=== PATIENT | male | born 1980 | race Caucasian/White ===

== ENCOUNTER → 2021-10-31 02:22 | Outpatient (CLI) | payer OTHER, SELFPAY ==
[2021-10-31 20:26] LABS: SARS-CoV-2 RNA PCR Negative
== END ==
PROVIDERS: PCP Family Medicine Adolescent Medicine; Visit Provider Family Medicine Adolescent Medicine
DX: R05.9 Cough, unspecified (principal); J02.9 Acute pharyngitis, unspecified; R50.9 Fever, unspecified; Z20.822 Contact with and (suspected) exposure to COVID-19
CPT/HCPCS: C9803; U0003; U0005

== ENCOUNTER 2023-08-09 11:05 | Observation (INO) | payer BC, SELFPAY ==
[2023-08-09] VITALS (13 sets, daily range): BP systolic 153–186; BP diastolic 88–103; PULSE 102–120; RESP 18–40; TEMP 36.9–37.3; O2SAT 93–98; BMI 34.7
--- NOTE | ~2023-08-09 | CT_ITS ---
EXAMINATION: CT brain wo con DATE: 08/09/2023 13:27 INDICATION: Seizure. Fall. Neck pain. TECHNIQUE: Computed tomography (CT) of the head was performed without intravenous contrast. The mA wa s adjusted according to patient size. Iterative reconstruction technique was employed. Exam dose: 60 5.33 mGy-cm total exam DLP. COMPARISON: 04/19/2019 CT brain. FINDINGS: Chronic right frontal, right temporal and left cerebellar encephalomalacia, stable since 04/19/2019. Chronic high right posterior parietal soft tissue thickening, present on 04/19/2019. No intracranial mass lesion or hemorrhage, midline shift or mass effect or subdural or epidural hemat waldemar is detected. No skull fracture or bone destruction. IMPRESSION: No acute finding or significant change since 04/19/2019 Reviewed, dictated and finalized at [facility]. Reviewed, dictated and finalized at [facility].
--- NOTE | ~2023-08-09 | XR_ITS ---
XR chest 1V portable DATE: 08/09/2023 13:12 INDICATION: Leukocytosis TECHNIQUE: Portable supine AP views on 08/09/2023 at 1301 at 1302 hours COMPARISON: 01/23/2009 portable AP chest FINDINGS: Mild discoid atelectasis or scarring at the right lung base. No pulmonary infiltrate or con solidation, pleural effusion or pulmonary vascular congestion or pneumothorax is noted otherwise. Car diac and mediastinal sweats appear unremarkable for AP projection. Included skeletal structures are unremarkable. IMPRESSION: Mild discoid scarring or atelectasis at the right lung base Reviewed, dictated and finalized at [facility].
--- NOTE | ~2023-08-09 | XR_ITS ---
XR shoulder LT min 2V DATE: 08/09/2023 13:12 INDICATION: Fall. Left shoulder injury, pain TECHNIQUE: 4 views of left shoulder COMPARISON: 02/27/2019 left shoulder FINDINGS: No fracture, dislocation, periosteal reaction or bone destruction or abnormal soft tissue c alcification. IMPRESSION: Negative Reviewed, dictated and finalized at [facility]. IMPRESSION: Negative
--- NOTE | ~2023-08-09 | CT_ITS ---
EXAMINATION: CT cervical spine wo con DATE: 08/09/2023 13:27 INDICATION: Seizure. Fall. Neck pain. TECHNIQUE: Computed tomography (CT) of the cervical spine was performed without intravenous contrast. Automated exposure control and iterative reconstruction technique were employed. Exam dose: 512.67 mGy-cm total exam DLP. COMPARISON: None FINDINGS: There is straightening of the cervical spine which may be due to muscle spasm or positionin g. There is failure segmentation of C2 and C3, congenital. There is prominent anterior spurring at C3-C6 C7. There is mild amount loss of interspace height at C 6-7. The remaining cervical spaces are well preserved. No fracture or dislocation or locked facet is detected.. 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 Reviewed, dictated and finalized at location [facility].
--- NOTE | 2023-08-09 11:12 | ECG_ITS ---
Measurements Intervals [place] Rate: 113 P: 135 SD: 145 QRS: 116 QRSD: 102 T: 155 QT: 308 QTc: 424 Interpretive Statements SINUS TACHYCARDIA LIMB LEAD REVERSAL LEFT ATRIAL ENLARGEMENT DELAYED PRECORDIAL R/S TRANSITION BORDERLINE ST-T WAVE ABNORMALITY- INFERIOR LEADS BASELINE ARTIFACT- I, III, AVL, V6 ABNORMAL ECG NO PREVIOUS ECG AVAILABLE FOR COMPARISON Electronically Signed On 08-09-2023 16:55:49 CDT by Marlo Robert D.O.
[2023-08-09 11:22] LABS: Basophils Absolute Auto 0.1 K/mm3 (0.0-0.1); Basophils Percent Auto 0.4 % (0.2-1.2); Hematocrit 46.6 % (42.0-52.0); Hemoglobin 16.5 g/dL (14.0-18.0); Immature Granulocyte Absolute 0.16 K/mm3 (0.00-0.031); Immature Granulocyte Percent A 0.7 % (0-0.5); Lymphocytes Absolute Auto 2.07 K/mm3 (0.9-3.2); Lymphocytes Percent Auto 9.2 % (18.3-44.2); Mean Corpuscular HGB Conc 35.4 g/dl (32-36); Mean Corpuscular Hemoglobin 30.3 pg (26-34); Mean Corpuscular Volume 85.5 fl (80-100); Mean Platelet Volume 11.3 fl (7.4-10.4); Monocytes Absolute Auto 0.9 K/mm3 (0.1-0.6); Monocytes Percent Auto 4.2 % (2.6-8.5); Neutrophils Absolute Auto 19.3 K/mm3 (1.3-6.7); Neutrophils Percent Auto 85.5 % (45.5-73.1); Platelet Count Result 215 k/mm3 (150-375); Red Blood Count 5.45 M/mm3 (4.6-6.20); Red Cell Distribution Width 12.1 % (11.5-14.5); White Blood Count 22.6 K/mm3 (4.5-10.0)
[2023-08-09 11:51] LABS: Alanine Aminotransferase 93 U/L (6-50); Albumin Level 4.5 g/dL (3.5-5.1); Alkaline Phosphatase 104 U/L (38-126); Anion Gap 7 mmol/L (8-16); Aspartate Amino Transferase 59 U/L (17-59); Bilirubin,Total 0.6 mg/dL (0.2-1.3); Blood Urea Nitrogen 11 mg/dL (9-20); Calcium 8.9 mg/dL (8.4-10.2); Carbon Dioxide 27 mmol/L (22-30); Chloride 102 mmol/L (98-107); Estimated CRCL calculation 126 ml/min; Estimated Glomerular Filt Rate > 60; Glucose 167 mg/dL (65-110); Potassium 4.4 mmol/L (3.4-5.0); Sodium 136 mmol/L (137-145)
--- NOTE | 2023-08-09 12:48 | ED.SEIZURE ---
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 Patient was at work when he was witnessed to fall backwards and having generalized seizure-like activity. Patient's mom is at bedside and helps with the history. States that he has somewhat frequent seizures related to his TBI 20+ years ago. He is on lacosamide, lamotrigine, clonazepam, phenobarbital which he is compliant with. Currently, he complains of left shoulder pain. He did bite his tongue. No bladder or bowel incontinence. He denies headache, neck or back pain. No chest pain, shortness of breath, abdominal pain. No nausea or vomiting. Related Data Home Medications Medication Instructions Recorded Confirmed ascorbate calcium (vitamin C) 500 1,000 mg PO DAILY 08/09/23 08/09/23 mg tablet calcium carb-vitamin D3 ER 600 mg 2 tablet PO DAILY 08/09/23 08/09/23 (1,500 mg)-500 unit tablet,ER 24 hr clobazam 10 mg tablet 10 - 20 mg PO BID 08/09/23 08/09/23 clonazepam 0.5 mg tablet 0.5 mg PO BID PRN Seizures 08/09/23 08/09/23 lacosamide 100 mg tablet 200 - 300 mg PO BID 08/09/23 08/09/23 lamotrigine 200 mg tablet 300 - 400 mg PO BID 08/09/23 08/09/23 multivitamin with minerals-folic 1 tablet PO DAILY 08/09/23 08/09/23 acid 0.4 mg tablet phenobarbital 97.2 mg tablet 97.2 mg PO HS 08/09/23 08/09/23 Allergies Allergy/AdvReac Type Severity Reaction Status Date / Time PHENYTOIN SODIUM Allergy Intermediate SEVERELY Uncoded 08/09/23 11:12 LETHARGIC PHENYTOIN SODIUM EXTENDED Allergy Unknown SEVERE Uncoded 08/09/23 11:12 LETHARGY Review of Systems Review of Systems: All systems reviewed & are unremarkable except as noted in HPI and below PMFSH Past Medical History Medical History Deafness in right ear Seizure disorder Traumatic brain injury (05/2001) Family History Family History Other Family history non-contributory Social History Social History Social History: Surrogate medical decision maker: Ravi(mother) or Tyler (brother) Sadie. Code status: Full code. Smoking status: Never smoker Second hand tobacco smoke exposure: No Alcohol intake: never Substance use: never Substance use type: does not use Additional living arrangements comments: Lives with mother in [place]. 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 EYES: PERRLA and EOMI. ENT: + Several abrasions/ecchymoses to lateral tongue NECK: Supple. C-collar in place, no midline tenderness CHEST: Clear to auscultation. No respiratory distress. HEART: Regular rate and rhythm ABDOMEN: Soft, nontender, nondistended EXTREMITIES: Normal range of motion. + Left shoulder with diffuse tenderness, no deformities SKIN: Warm, dry, no rash. NEURO: No focal deficits. Alert and oriented x3. PSYCH: Normal mood and affect. Course Vital Signs Vital signs: Vital Signs Temperature 99.1 F 08/09/23 11:00 Pulse Rate 116 H 08/09/23 11:00 Respiratory Rate 24 H 08/09/23 11:00 Blood Pressure 160/88 H 08/09/23 11:00 Pulse Oximetry 96 08/09/23 11:00 Temperature 98.3 F 08/10/23 14:00 Pulse Rate 105 H 08/10/23 14:00 Respiratory Rate 20 08/10/23 14:00 Blood Pressure 167/88 H 08/10/23 14:00 Pulse Oximetry 97 08/10/23 14:00 Oxygen Delivery Nasal Cannula 08/09/23 14:39 Oxygen Flow Rate 2 08/09/23 14:39 MDM - Seizure MDM Narrative Medical decision making narrative: Patient is a 43-year-old male presenting
[2023-08-09] MEDS: SODIUM CHLORIDE 0.9% IV 1,000 ML 999 ML IV CONT ×2 (12:55→15:39)
--- NOTE | 2023-08-09 13:12 | PC.NURSE ---
Pt to CT scan via stretcher at this time.
[2023-08-09 13:44] LABS: Appearance Urine Clear (Clear); Bacteria Urine None Seen /hpf; Bilirubin Urine Negative (Negative); Blood Urine Negative (Negative); Color Urine Yellow (Yellow); Glucose Urine UA Negative (Negative); Ketones Urine Negative (Negative); Leukocyte Esterase Ur Negative LEU/UL (Negative); Nitrate Urine Negative (Negative); Non Pathogenic Casts 0-2; Protein Urine 1+ mg/dL (Negative); RBC Urine 0-2 /hpf (0-2); Specific Grav Ur 1.015 (1.001-1.035); Squamous Epithelial Cell Urine None seen /hpf (Few); Urobilinogen Urine 0.2 mg/dL (<2.0); WBC Urine 0-5 /hpf
[2023-08-09 13:52] LABS: Add Urine Microscopic? YES
[2023-08-09] MEDS: LORazepam INJ (*CRX) 2 MG/ML VIAL IV PUSH (14:41)
[2023-08-09] MEDS: levETIRAcetam IV 3,000 MG in DEXTROSE 5% 100 ML 460 MG IVPB (17:35)
--- NOTE | 2023-08-09 19:46 | ADMGEN ---
This patient, Tone Noel, was admitted to Medical Room 340-01. Patient/family oriented to hospital policies and general routines including ID bracelet, bed and alarms, visiting hours, pain management, procedures, bathroom and other care routines, personal items, smoking policy, room service/diet, and visiting hours. Information on how to activate the Rapid Response Team has been discussed. Patient/Family are encouraged to report perceived risks to care and to ask questions if they do not understand what they are told or what they should do.
--- NOTE | 2023-08-09 21:07 | PM.IMHP ---
H&P: HPI History of Present Illness Date/Time: 08/09/23 18:00 Chief Complaint: Seizure. Narrative: This is a 43-year-old male with history of traumatic brain injury and subsequent seizures presented to the emergency department via EMS from his place of employment for evaluation after seizure. He is postictal and is not able to provide much in the way of history at this time. As such majority the following is obtained via a review of his EMR as well as discussions with his mother. He is followed by Dr. Stephenson at [facility] and he is currently taking phenobarbital, lamotrigine, and lacosamide daily. Despite compliance with his medications, it is not unusual for him to have partial complex seizures every 7 to 10 days or so and at times he has grand mal seizures as well. Previously he was on phenytoin and levetiracetam but did not tolerate either of those due to lethargy and extreme rage respectively. In any event the patient seemed to be just fine this morning when he left for work. Approximately 30 minutes into his shift a co-worker found him flat on his back and ?twitching.? EMS was summoned and he was postictal on their arrival. CT of the head and neck as well as x-rays of the shoulder and chest were negative for acute findings. Labs were pretty unremarkable aside from a WBC count of 22.6 he gradually became more alert in the ED and just as he was going to be discharged she had a grand mal seizure requiring Ativan he is being admitted in this setting for close monitoring and neurology consultation. At the time my evaluation he is asleep but does arouse to voice. He has no current complaints and denies headache, neck pain, chest pain, shortness a breath, nausea, vomiting, focal weakness, paresthesias. Review of Systems Review of Systems: Twelve systems were reviewed and are negative except for as per HPI. [facility] Past Medical History Medical History (Updated 08/09/23 @ 21:15 by Nina Weaver PA-C) Deafness in right ear Seizure disorder Traumatic brain injury (05/2001) Family History Family History (Updated 08/09/23 @ 21:12 by Nina Weaver PA-C) Other Family history non-contributory Social History Social History (Updated 08/09/23 @ 21:13 by Nina Weaver PA-C) Social History: Surrogate medical decision maker: Ravi(mother) or Ed (brother) Sadie. Code status: Full code. Smoking status: Never smoker Second hand tobacco smoke exposure: No Alcohol intake: never Substance use: never Substance use type: does not use Additional living arrangements comments: Lives with mother in [place]. 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 Meds Home Medications and Allergies Home Medications Medication Instructions Recorded Confirmed Type ascorbate calcium (vitamin C) 500 1,000 mg PO DAILY 08/09/23 08/09/23 History mg tablet calcium carb-vitamin D3 ER 600 mg 2 tablet PO DAILY 08/09/23 08/09/23 History (1,500 mg)-500 unit tablet,ER 24 hr clobazam 10 mg tablet 10 - 20 mg PO BID 08/09/23 08/09/23 History clonazepam 0.5 mg tablet 0.5 mg PO BID PRN Seizures 08/09/23 08/09/23 History lacosamide 100 mg tablet 200 - 300 mg PO BID 08/09/23 08/09/23 History lamotrigine 200 mg tablet 300 - 400 mg PO BID 08/09/23 08/09/23 History multivitamin with minerals-folic 1 tablet PO DAILY 08/09/23 08/09/23 History acid 0.4 mg tablet phenobarbital 97.2 mg tablet 97.2 mg PO HS 08/09/23 08/09/23 History Allergies Allergy/AdvReac Type Severity Reaction Status Date / Time PHENYTOIN SODIUM Allergy Intermediate SEVERELY Uncoded 08/09/23 11:12 LETHARGIC PHENYTOIN SODIUM EXTENDED Allergy Unknown SEVERE Uncoded 08/09/23 11:12 LETHARGY Vital Signs Vital Signs - 24 hr 08/09/23 11:00 08/09/23 11:05 08/09/23 11:12 Temperature 99.1 F Pulse Rate 116 H 113 H Respiratory Rate 24 H Blood Pressure 160/88 H Pulse
[2023-08-09] MEDS: lamoTRIgine 100 MG TABLET 400 MG PO (22:27)
[2023-08-09] MEDS: ACETAMINOPHEN 325 MG TABLET 650 MG PO (22:28)
[2023-08-09] MEDS: PHENobarbital (*CRX) 100 MG TABLET PO (22:28)
[2023-08-09] MEDS: LACOSAMIDE (*CRX) 100 MG TABLET PO (22:28)
[2023-08-09] MEDS: LACOSAMIDE (*CRX) 200 MG TABLET PO (22:28)
[2023-08-09 23:37] LABS: Phenytoin Dilantin < 3 ug/mL (10-20)
[2023-08-10] VITALS: PULSE 103
[2023-08-10 04:00] VITALS: PULSE 93
[2023-08-10 04:05] VITALS: BP 176/89; PULSE 91; RESP 18; TEMP 36.6; O2SAT 99
[2023-08-10 06:06] LABS: Hematocrit 45.2 % (42.0-52.0); Hemoglobin 15.6 g/dL (14.0-18.0); Mean Corpuscular HGB Conc 34.5 g/dl (32-36); Mean Corpuscular Hemoglobin 29.9 pg (26-34); Mean Corpuscular Volume 86.8 fl (80-100); Mean Platelet Volume 11.3 fl (7.4-10.4); Platelet Count Result 196 k/mm3 (150-375); Red Blood Count 5.21 M/mm3 (4.6-6.20); Red Cell Distribution Width 12.1 % (11.5-14.5); White Blood Count 17.2 K/mm3 (4.5-10.0)
[2023-08-10 06:19] LABS: Anion Gap 9 mmol/L (8-16); Blood Urea Nitrogen 9 mg/dL (9-20); Calcium 8.6 mg/dL (8.4-10.2); Carbon Dioxide 25 mmol/L (22-30); Chloride 102 mmol/L (98-107); Estimated CRCL calculation 146 ml/min; Estimated Glomerular Filt Rate > 60; Glucose 135 mg/dL (65-110); Magnesium 2.2 mg/dL (1.6-2.3); Potassium 3.5 mmol/L (3.4-5.0); Sodium 136 mmol/L (137-145)
[2023-08-10 08:00] VITALS: PULSE 85
[2023-08-10] MEDS: THERAPEUTIC MULTIVITAMINS/MINERALS TAB (*BKC) 1 TABLET PO (09:02)
[2023-08-10] MEDS: LACOSAMIDE (*CRX) 200 MG TABLET PO (09:04)
[2023-08-10] MEDS: lamoTRIgine 100 MG TABLET 300 MG PO (09:07)
--- NOTE | 2023-08-10 10:41 | WPDNEURCNPN ---
Assessment and Plan Assessment and plan (1) Breakthrough seizure: Code(s): G40.919 - Epilepsy, unspecified, intractable, without status epilepticus Status: Acute (2) Seizure disorder: Code(s): G40.909 - Epilepsy, unspecified, not intractable, without status epilepticus Status: Acute (3) History of traumatic brain injury: Code(s): Z87.820 - Personal history of traumatic brain injury Status: Acute Plan Tone Noel is a 43 year old male with a history of TBI and post-traumatic intractable epilepsy presenting due to breakthrough seizures, seemingly unprovoked. He is on several seizure medications, any of which could be adjusted. I will defer dose adjustment of his medications to his primary epileptologist. Continue anti-seizure medications at same doses. Patient has not had any breakthrough seizures since he was admitted. Instructed that they call on Friday to update Dr. Stephenson so that he can adjust meds accordingly. Ok to discharge. Consult date: 08/10/23 Reason for consult: Breakthrough seizures HPI: Tone Noel is a 43 year old male with a history of TBI and post-traumatic intractable epilepsy presenting due to breakthrough seizures. Patient sees Dr. 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. He is on Lamotrigine 300mg/400mg, Lacosamide 200mg/300mg, Onfi 10mg/20mg, and Phenobarbital 100mg qhs. He presented yesterday with two breakthrough seizures. He had a seizure while at work that was only described as 'twitching' while on his back. EMS was called and patient appeared to be post-ictal by the time of their evaluation. At [place] ED he had a CT head without any acute changes. Labs were significant for leukocytosis, presumably reactive. He became more alert while in the ED, but had a GTC just prior to being discharged. He received a dose of Ativan and Keppra 3g load. Patient reports compliance with medications. He has not had any recent illnesses. At baseline it is not unusual for him to have a breakthrough seizure every 10 days, but he can go longer without one. He mostly has focal seizures, but on occasion can have GTC. Patient does not drive. Patient's mother at bedside this morning. She reports that patient hit his head with the first seizure, which she believes was a focal seizure based on patient's coworker's description. She believes that the GTC that he had in the ED was provoked by him hitting his head with the first seizure. Review of Systems Constitutional: Constitutional: Denies chills, Denies fever(s) and Denies weight loss Eyes: Eyes: Reports blurry vision, Denies diplopia and Denies loss of vision ENT: Denies dizziness, Denies hearing loss and Reports tinnitus Cardiovascular: Cardiovascular: Denies chest pain, Denies syncope and Denies dyspnea Respiratory: Respiratory: Denies cough, Denies dyspnea and Denies wheezing Gastrointestinal: Gastrointestinal: Denies abdominal pain, Denies change in bowel habits and Denies vomiting Genitourinary: Genitourinary: Denies urinary incontinence Musculoskeletal: Musculoskeletal: Denies arthralgias and Denies joint swelling Comments: shoulder pain Integumentary/Breasts: Skin/Breast: Denies new lesions and Denies rash Neurologic: Reports as per HPI, Denies dizziness, Denies syncope and Denies loss of vision Psychiatric: Psychiatric: Denies anxiety and Denies depression Endocrine: Endocrine: Denies cold intolerance and Denies heat intolerance Hematologic/Lymphatic: Hematologic/Lymphatic: Denies easy bleeding and Denies easy bruising Allergic/Immunologic: Allergic/Immunologic: Denies no additional allergic/immunologic complaints and Denies wheezing PMFSH Past Medical History Medical History Deafness in right ear Seizure disorder Traumatic brain injury (05/2001) Family History Family History Other Family history non-contributory Socia
[2023-08-10 12:00] VITALS: PULSE 93
--- NOTE | 2023-08-10 12:54 | PM.DS ---
DS: Admitting Diagnosis Discharge Date 08/10/2023 Admitting Diagnosis 08/09/2023 DS: Discharge Diagnosis Discharge Diagnosis (1) Breakthrough seizure: Code(s): G40.919 - Epilepsy, unspecified, intractable, without status epilepticus Status: Acute (2) Leukocytosis: Code(s): D72.829 - Elevated white blood cell count, unspecified Status: Acute (3) Seizure disorder: Code(s): G40.909 - Epilepsy, unspecified, not intractable, without status epilepticus Status: Acute (4) History of traumatic brain injury: Code(s): Z87.820 - Personal history of traumatic brain injury Status: Acute Plan The patient presented to the emergency department via EMS from his place of work for evaluation after a seizure as per HPI. Labs, imaging, EKG, and all reports were personally reviewed. According to the patient's mother, he is very compliant with his seizure medications though it is not unusual for him to have a seizure every 7 to 10 days or so, typically partial complex though occasional grand mal seizures. Today it sounds as though he had 1 of each. He is being admitted in this setting for close monitoring given 2 seizures today. Neurology has been consulted and their input is appreciated. Initiate seizure precautions. Leukocytosis is likely related to stress response from seizures. No history or evidence to support underlying infection. Pt had iv fluids, iv ativan and iv lamotrigine in ED pt looks stable today no further seizures reported. His home medications will be reviewed and resumed as appropriate. Pt seen by neurology [facility] [place] today with follow up with own neurologist. Pt to continue all his medications as before including lacosamide, lamotrigine, onfi and phenobarbitol. No change in medications or doses. DS: Summary Hospital Course Hospital Course: Pt had a seizure seen by his mother, pt observed in hospital pt seen by neurology [facility] today on his own medications. No change in medications or doses. Time Spent with Patient Time attestation: Total time spent providing and/or coordinating discharge services:40 minutes on day of dc Exam Narrative: General: Mildly ill-appearing gentleman Respiratory: Lungs are clear to auscultation bilaterally. Cardiovascular: Regular rate and rhythm with S1-S2. Gastrointestinal: Abdomen is soft, nontender, and nondistended with positive bowel sounds. Skin: Warm and dry. Extremities: No cyanosis, clubbing, or edema. Radial and pedal pulses intact. Neurological: Alert and oriented to name, age, and date of . He is aware that he is in the hospital. Still a bit postictal. Cranial nerves 2-12 are grossly intact. Speech is clear. No facial asymmetry. Hand bond clerk and foot pushes equal bilaterally. Psychiatric: Still slightly postictal. Alert and cooperative. DS: Data Data Completed and Pending Labs on day of discharge: Labs from last 24 hours 08/10/23 08/09/23 08/09/23 05:23 22:27 13:32 WBC 17.2 H RBC 5.21 Hgb 15.6 Hct 45.2 MCV 86.8 MCH 29.9 MCHC 34.5 RDW 12.1 Plt Count 196 MPV 11.3 H Sodium 136 L Potassium 3.5 Chloride 102 Carbon Dioxide 25 Anion Gap 9 BUN 9 Creatinine 0.60 L Estim Creat Clear Calc 146 Estimated GFR > 60 Glucose 135 H Calcium 8.6 Magnesium 2.2 Urine Color Yellow Urine Appearance Clear Urine pH 8.0 Ur Specific Manning 1.015 Urine Protein 1+ H Urine Glucose (UA) Negative Urine Ketones Negative Ur Blood (Man) Negative Urine Nitrate Negative Urine Bilirubin Negative Urine Urobilinogen 0.2 Leukocyte Esterase Rfl Negative Urine RBC 0-2 Urine WBC 0-5 Ur Squamous Epith Cells None seen Urine Bacteria None seen Urine Casts 0-2 Phenytoin < 3 L Lamotrigine Pending Discharge Plan Discharge Attending physician on discharge: Karissa Tariq Consulting providers: [facility]
[2023-08-10] MEDS: ACETAMINOPHEN 325 MG TABLET 650 MG PO (13:30)
[2023-08-10 14:00] VITALS: BP 167/88; PULSE 105; RESP 20; TEMP 36.8; O2SAT 97
== END 2023-08-10 15:00 | disposition home or self-care (01) ==
LOC: ANHED 14:35 → ANH3MED 21:06
PROVIDERS: Emergency Medicine; Physician Assistant; Admitting Provider Hospitalist; Emergency Provider Emergency Medicine; PCP Family Medicine Adolescent Medicine; Visit Provider Family Medicine
DX: G40.919 Epilepsy, unspecified, intractable, without status epilepticus (principal); D72.829 Elevated white blood cell count, unspecified; G40.909 Epilepsy, unspecified, not intractable, without status epilepticus; Z87.820 Personal history of traumatic brain injury; M25.552 Pain in left hip; W19.XXXA Unspecified fall, initial encounter; M50.30 Other cervical disc degeneration, unspecified cervical region; I10 Essential (primary) hypertension; R94.31 Abnormal electrocardiogram [ECG] [EKG]; G93.89 Other specified disorders of brain; R00.0 Tachycardia, unspecified; R91.8 Other nonspecific abnormal finding of lung field; Z79.899 Other long term (current) drug therapy
CPT/HCPCS: 36415; 70450; 71045; 72125; 73030; 80048; 80053; 80175; 80185; 81001; 83735; 85025; 85027; 93005; 96361; 96365; 96375; 99285; A9270; G0378; J1953; J2060; J7030

== ENCOUNTER 2023-10-28 10:40 | Emergency (ER) | payer BC, SELFPAY ==
[2023-10-28] VITALS (15 sets, daily range): BP systolic 151–195; BP diastolic 90–106; PULSE 101–124; RESP 16–38; TEMP 36.9; O2SAT 93–98
--- NOTE | ~2023-10-28 | XR_ITS ---
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 RESULT: Lines, tubes, and devices: None. Lungs and pleura: Low volumes with crowding. Streaky bibasilar opacities, likely atelectasis/scar. Cardiomediastinal silhouette: Stable. Other: No acute osseous or upper abdominal finding. IMPRESSION: No acute cardiopulmonary process. Reviewed, dictated and finalized at location K. MECHANICAL ENGINEER
--- NOTE | ~2023-10-28 | XR_ITS ---
Left Shoulder Technique: AP and scapular Y views were obtained. Clinical History: Pain Findings: No fracture or dislocation is seen. Osseous alignment is anatomic. The glenohumeral and acr omioclavicular joint spaces are preserved. Soft tissues are unremarkable. Impression: Unremarkable left shoulder radiographs. Reviewed, dictated and finalized at [facility]. GER NURSING Impression: Unremarkable left shoulder radiographs.
--- NOTE | ~2023-10-28 | CT_ITS ---
EXAMINATION: CT cervical spine wo con DATE: 10/28/2023 11:21 INDICATION: Status post fall. Head injury. TECHNIQUE: Computed tomography (CT) of the cervical spine was performed without intravenous contrast. The dose-length product was 407 mGy-cm. Automated exposure control and iterative reconstruction tech nique were employed. COMPARISON: CT dated 08/09/2023 FINDINGS: Prominent bridging osteophytes noted anteriorly at C3-4 and C5-6. Vertebral body heights ar e maintained. Odontoid process is normal. Craniovertebral junction within normal limits. Mild multile treesa uncinate hypertrophy. Odontoid process is normal. Lateral masses normally aligned. There is devel opmental fusion at C2-3. No paraspinal soft tissue abnormality. Lung apices are normal. IMPRESSION: 1. No acute abnormality of the cervical spine. Reviewed, dictated and finalized at location L. LIANCE AIDE
--- NOTE | ~2023-10-28 | CT_ITS ---
Non-contrast Head CT History: Seizure, head injury COMPARISON: 08/09/2023 Technique: Axial non-contrast imaging of the brain was performed. Dose reduction technique was used on this scan by utilizing automated exposure control and iterative reconstruction technique. The dose -length product (DLP) was 605.33 mGy-cm. Findings: There is no evidence of intracranial hemorrhage, mass lesion, or acute infarct. Stable are as of encephalomalacia in the right temporal lobe and left cerebellum.. The ventricles and subarachn oid spaces are normal in size. The calvarium appears normal. The visualized paranasal sinuses and m astoid air cells are clear. There is soft tissue swelling in the scalp at the posterior aspect superi leni. Impression: No acute intracranial abnormality. Stable chronic areas of encephalomalacia at the left cerebellum and right temporal lobe. Scalp soft tissue swelling/hematoma at the posterior superior aspect. Reviewed, dictated and finalized at [facility]. NO SLOT SUPERVISOR Impression: No acute intracranial abnormality. Stable chronic areas of encephalomalacia at the left cerebellum and right tempo ral lobe. Scalp soft tissue swelling/hematoma at the posterior superior aspect.
--- NOTE | ~2023-10-28 | XR_ITS ---
Right Shoulder Technique: AP and scapular Y views were obtained. Clinical History: Pain Findings: No fracture or dislocation is seen. Osseous alignment is anatomic. The glenohumeral and acr omioclavicular joint spaces are preserved. Soft tissues are unremarkable. Impression: Unremarkable right shoulder radiographs. Reviewed, dictated and finalized at [facility]. IFF'S SERGEANT Impression: Unremarkable right shoulder radiographs.
--- NOTE | 2023-10-28 10:48 | ECG_ITS ---
Measurements Intervals [place] Rate: 119 P: 43 WV: 156 QRS: 44 QRSD: 98 T: 95 QT: 295 QTc: 415 Interpretive Statements SINUS TACHYCARDIA POSSIBLE LEFT ATRIAL ENLARGEMENT [-0.1mV P-WAVE IN V1/V2] POSSIBLE OLD INFERIOR MYOCARDIAL INFARCTION ST DEVIATION AND MODERATE T-WAVE ABNORMALITY, CONSIDER LATERAL ISCHEMIA [-0.1+ mV T- WAVE IN I/aVL/V5/V6] COMPARED TO ECG 08/09/2023 11:07:[address] DEPRESSION IS MORE PRONOUNCED Electronically Signed On 10-28-2023 13:35:56 [employer] by Mel Curry M.D.
--- NOTE | 2023-10-28 10:48 | ED.SEIZURE ---
HPI - Seizure General Chief Complaint: Seizure Stated Complaint: seizure/postictal Source: patient, family and EMS Mode of arrival: EMS Limitations: clinical condition History of Present Illness HPI Narrative: Patient is a 43 y/o male, with PMH of seizure disorder s/p TBI in 2000, who presents to the ED via EMS with report of seizure. Per EMS report, patient was pushing carts at [employer] today when he had a witnessed tonic-clonic seizure. He did fall to the ground and hit his head. EMS was contacted. Patient does have history of seizures and is currently on lamotrigine, lacosamide, clobazam, and phenobarbital, which he is compliant with. Patient is alert and oriented x2 currently. Unsure of year. He states he remembers going to work this morning, but unable to tell me anything further about the events of today. Denies any acute complaints. Denies pain. Denies dizziness, lightheadedness, vision changes, N/V. Mother at bedside reports patient does have frequent seizures, depending on the weather. He sees a neurologist at [facility]. He was seen in the ED here around 1 month ago and was admitted for recurrent seizures. Seizure History: Yes Related Data Home Medications Medication Instructions Recorded Confirmed ascorbate calcium (vitamin C) 500 1,000 mg PO DAILY 08/09/23 08/09/23 mg tablet calcium carb-vitamin D3 ER 600 mg 2 tablet PO DAILY 08/09/23 08/09/23 (1,500 mg)-500 unit tablet,ER 24 hr clobazam 10 mg tablet 10 - 20 mg PO BID 08/09/23 08/09/23 clonazepam 0.5 mg tablet 0.5 mg PO BID PRN Seizures 08/09/23 08/09/23 lacosamide 100 mg tablet 200 - 300 mg PO BID 08/09/23 08/09/23 lamotrigine 200 mg tablet 300 - 400 mg PO BID 08/09/23 08/09/23 multivitamin with minerals-folic 1 tablet PO DAILY 08/09/23 08/09/23 acid 0.4 mg tablet phenobarbital 97.2 mg tablet 97.2 mg PO HS 08/09/23 08/09/23 Allergies Allergy/AdvReac Type Severity Reaction Status Date / Time phenytoin Allergy Intermediate severely Verified 10/28/23 11:07 lethargic Review of Systems Review of Systems: CONSTITUTIONAL: Denies fever, chills, or sweats. ENT: Denies vision changes, rhinorrhea, congestion, sore throat. CARDIOVASCULAR: Denies chest pain, palpitations, or edema. RESPIRATORY: Denies cough or dyspnea. GASTROINTESTINAL: Denies abdominal pain, nausea, vomiting. MUSCULOSKELETAL: Denies back pain, joint pain, or myalgia. NEUROLOGIC: See HPI. All systems reviewed & are unremarkable except as noted in HPI and below PMFSH Past Medical History Medical History Deafness in right ear Seizure disorder Traumatic brain injury (05/2001) Family History Family History Other Family history non-contributory Social History Social History Social History: Surrogate medical decision maker: Ravi(mother) or Tyler (brother) Sadie. Code status: Full code. Smoking status: Never smoker Second hand tobacco smoke exposure: No Alcohol intake: never Substance use: never Substance use type: does not use Additional living arrangements comments: Lives with mother in [place]. 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 HEAD: Normocephalic, atraumatic. Small contusion/abrasion to posterior scalp, no bleeding, no significant tenderness. EYES: PERRL/EOMI, conjunctivae clear bilaterally. No nystagmus. ENT: No mucosal or tongue bite emanuel. MMs slightly dry. NECK: Supple. No adenopathy, no masses. No midline spinal tenderness. RESPIRATORY: Airway patent, respirations nonlabored. Clear to auscultation bilaterally, no rales, rhonchi, wheezing. CARDIOVASCULAR: Regular rate and rhythm without murmurs, rubs, or
[2023-10-28 11:04] LABS: Basophils Absolute Auto 0.1 K/mm3 (0.0-0.1); Basophils Percent Auto 0.5 % (0.2-1.2); Eosinophils Percent Auto 0.1 % (0-4.4); Hematocrit 50.3 % (42.0-52.0); Hemoglobin 17.2 g/dL (14.0-18.0); Immature Granulocyte Absolute 0.08 K/mm3 (0.00-0.031); Immature Granulocyte Percent A 0.4 % (0-0.5); Lymphocytes Absolute Auto 2.14 K/mm3 (0.9-3.2); Lymphocytes Percent Auto 9.7 % (18.3-44.2); Mean Corpuscular HGB Conc 34.2 g/dl (32-36); Mean Corpuscular Hemoglobin 29.7 pg (26-34); Mean Corpuscular Volume 86.7 fl (80-100); Mean Platelet Volume 11.5 fl (7.4-10.4); Monocytes Percent Auto 4.4 % (2.6-8.5); Neutrophils Absolute Auto 18.7 K/mm3 (1.3-6.7); Neutrophils Percent Auto 84.9 % (45.5-73.1); Platelet Count Result 219 k/mm3 (150-375); Red Cell Distribution Width 12.4 % (11.5-14.5); White Blood Count 22.1 K/mm3 (4.5-10.0)
[2023-10-28] MEDS: SODIUM CHLORIDE 0.9% IV 1,000 ML 999 ML IV CONT ×2 (11:10→13:10)
[2023-10-28 11:21] LABS: Alanine Aminotransferase 76 U/L (6-50); Alkaline Phosphatase 120 U/L (38-126); Anion Gap 13 mmol/L (8-16); Aspartate Amino Transferase 38 U/L (17-59); Bilirubin,Total 0.5 mg/dL (0.2-1.3); Blood Urea Nitrogen 13 mg/dL (9-20); Carbon Dioxide 26 mmol/L (22-30); Chloride 102 mmol/L (98-107); Estimated CRCL calculation 100 ml/min; Estimated Glomerular Filt Rate > 60; Glucose 161 mg/dL (65-110); Lactic Acid Reflex 2.7 mmol/L (0.7-2.0); Magnesium 1.6 mg/dL (1.6-2.3); Potassium 4.1 mmol/L (3.4-5.0); Sodium 141 mmol/L (137-145)
[2023-10-28] MEDS: MAGNESIUM SULF 1 GM/D5W 100 ML 1 GM/100 ML BAG IVPB (11:36)
[2023-10-28 11:53] LABS: Appearance Urine Clear (Clear); Bacteria Urine None Seen /hpf; Bilirubin Urine Negative (Negative); Blood Urine Negative (Negative); Color Urine Yellow (Yellow); Glucose Urine UA Negative (Negative); Ketones Urine Negative (Negative); Leukocyte Esterase Ur Negative LEU/UL (Negative); Nitrate Urine Negative (Negative); Non Pathogenic Casts 0-2; Protein Urine Trace mg/dL (Negative); RBC Urine 0-2 /hpf (0-2); Specific Grav Ur 1.019 (1.001-1.035); Squamous Epithelial Cell Urine None seen /hpf (Few); Urobilinogen Urine 0.2 mg/dL (<2.0); WBC Urine 0-5 /hpf; pH Urine 6.5 (5.0-9.0)
[2023-10-28 11:54] LABS: Add Urine Microscopic? YES
[2023-10-28] MEDS: ACETAMINOPHEN 500 MG TABLET 1000 MG PO (12:21)
[2023-10-28] MEDS: levETIRAcetam 1000MG/NACL100ML 1,000 MG/100 ML BAG 400 MG IVPB (12:37)
[2023-10-28 13:31] LABS: Amphetamine Screen Urine Negative (Negative); Barbiturate Screen Urine Positive (Negative); Benzodiazepines Screen Urine Positive (Negative); Cannabinoid Screen Urine Negative (Negative); Cocaine Screen Urine Negative (Negative); Methadone Screen Urine Negative (Negative); Opiate Screen Urine Negative (Negative); Phencyclidine Screen Urine Negative (Negative)
[2023-10-28 14:02] LABS: Reflex Lactic Acid Yes or No Add Lactic
[2023-10-28 14:28] LABS: Lactic Acid 1.3 mmol/L (0.7-2.0)
== END 2023-10-28 15:43 | disposition home or self-care (01) ==
PROVIDERS: Emergency Provider Physician Assistant; PCP Family Medicine Adolescent Medicine
DX: G40.909 Epilepsy, unspecified, not intractable, without status epilepticus (principal); Z87.820 Personal history of traumatic brain injury; D72.829 Elevated white blood cell count, unspecified; R00.0 Tachycardia, unspecified
CPT/HCPCS: 36415; 70450; 71045; 72125; 73030; 80053; 80307; 81001; 83605; 83735; 85025; 93005; 96361; 96365; 96367; 99284; A9270; J1953; J3475; J7030